=== PATIENT | male | born 1980 | race Caucasian/White ===

== ENCOUNTER 2017-01-18 12:15 | Emergency (ER) | payer SELFPAY ==
[~2017-01-18] VITALS: Ht 167.6 cm; Wt 56.7 kg
[~2017-01-18 12:15] MED LIST: AUGMENTIN875 MG PO; BACTRIM,SEPT1 TABLET PO; CEFDINIR300 MG PO; CLINDAMYCIN HC300 MG PO; EXCEDRIN MIGRA1 EAC3 PO; KEFLEX500 MG PO; LEVAQUIN500 MG PO; METHADONE HCL40 MG PO; METHADONE10 MG PO; METHADOSE5 MG PO; NAPROSYN500 MG PO; NOHOMEMEDS; TORADOL10 MG PO
[2017-01-18 13:15] LABS: HEMATOCRIT 40.7 % (38.0-50.0); MCH 30.1 PG (29.0-34.0); MCHC 34.9 G/DL (30.0-36.0); MCV 86.4 FL (86-99); MEAN PLAT.VOLUME 9.6 uM^3 (9.0-12.4); PLATELET COUNT 232 K/uL (156-360); RBC DIS.WIDTH-CV 12.6 % (11.8-14.6); RED BLOOD COUNT 4.71 M/uL (4.00-5.50)
[2017-01-18 13:28] LABS: CHLORIDE 102 mEq/L (99-109); POTASSIUM 3.7 mEq/L (3.7-5.4); SODIUM 139 mEq/L (136-147)
[2017-01-18 13:29] LABS: GLUCOSE 125 mg/dL (70-99)
[2017-01-18 13:31] LABS: ANION GAP 11 MEQ/L (2-14)
[2017-01-18 13:33] LABS: GFR ESTIMATE (CALCULATED) > 59 mL/min/
[2017-01-18 13:34] LABS: UREA NITROGEN (BUN) 9 mg/dL (9-23)
[2017-01-18 15:13] LABS: EOSINOPHIL (%) 0 % (0-5); IMMATURE GRANULOCYTE (%) 0.2 % (0.0-0.7); IMMATURE GRANULOCYTE COUNT 0.1 K/uL; LYMPHOCYTE COUNT 1.9 K/uL (1.0-2.8); MONOCYTE (%) 5.4 % (3-12); MONOCYTE COUNT 1.2 K/uL (0-0.8); NEUTROPHIL (%) 86.3 % (45-76)
[2017-01-18] MEDS ORDERED: LEVAQUIN500 MG PO (15:58)
[2017-01-18] MEDS ORDERED: TESSALON PERLE100 MG PO (15:58)
[2017-01-18 16:38] VITALS: BP 121/70
== END 2017-01-18 16:48 | disposition home or self-care (01) ==
LOC: EME 12:15
DX: J18.9 Pneumonia, unspecified organism (principal); F17.200 Nicotine dependence, unspecified, uncomplicated; R42 Dizziness and giddiness; Z79.891 Long term (current) use of opiate analgesic
CPT/HCPCS: 71020; 80048; 83605; 85025; 85027; 87040; 99281; 99284

== ENCOUNTER 2017-02-02 14:10 | Emergency (ER) | payer SELFPAY ==
[~2017-02-02] VITALS: Ht 167.6 cm; Wt 55.8 kg
[~2017-02-02 14:10] MED LIST changes: +TESSALON PERLE100 MG PO
[2017-02-02 14:28] LABS: POINT-OF-CARE METER ID UU13113778
[2017-02-02] MEDS ORDERED: METHADONE10 MG PO (14:53)
[2017-02-02 14:59] LABS: HEMATOCRIT 44.1 % (38.0-50.0); MCH 30.1 PG (29.0-34.0); MCHC 33.8 G/DL (30.0-36.0); MCV 89.1 FL (86-99); MEAN PLAT.VOLUME 9.4 uM^3 (9.0-12.4); PLATELET COUNT 288 K/uL (156-360); RBC DIS.WIDTH-CV 12.6 % (11.8-14.6); RBC DIS.WIDTH-SD 40.9 % (39-53); RED BLOOD COUNT 4.95 M/uL (4.00-5.50)
[2017-02-02 15:00] LABS: WHITE BLOOD COUNT 7.2 K/uL (4.1-10.2)
[2017-02-02 15:08] LABS: CHLORIDE 105 mEq/L (99-109); POTASSIUM 3.9 mEq/L (3.7-5.4); SODIUM 142 mEq/L (136-147)
[2017-02-02 15:10] LABS: GLUCOSE 81 mg/dL (70-99)
[2017-02-02 15:11] LABS: ANION GAP 11 MEQ/L (2-14)
[2017-02-02 15:12] LABS: ADD MIUA? YES; BILIRUBIN NEGATIVE; BLOOD NEGATIVE; COLOR YELLOW ((YELLOW)); GLUCOSE (STRIP) NEGATIVE; KETONES NEGATIVE; LEUKOCYTES TRACE; NITRITE NEGATIVE; PROTEIN (STRIP) NEGATIVE; SPECIFIC GRAVITY 1.025 (1.000-1.030)
[2017-02-02 15:12] LABS: TOTAL BILIRUBIN 0.7 mg/dL (0.0-1.0)
[2017-02-02 15:14] LABS: ALKALINE PHOSPHATASE 65 IU/L (3-129); GFR ESTIMATE (CALCULATED) > 59 mL/min/
[2017-02-02 15:15] LABS: UREA NITROGEN (BUN) 10 mg/dL (9-23)
[2017-02-02 15:23] LABS: BACTERIA RARE /HPF; EPITHELIAL CELLS NONE SEEN /HPF; MUCUS TRACE /LPF; UCUL ADDED? NO; WHITE BLOOD CELLS 0-5 /HPF (0-5)
[2017-02-02 17:06] VITALS: BP 115/86
== END 2017-02-02 17:07 | disposition home or self-care (01) ==
LOC: EME 14:10 → RME 14:10
PROVIDERS: Physician Assistant
DX: R20.2 Paresthesia of skin (principal); R53.83 Other fatigue; F17.200 Nicotine dependence, unspecified, uncomplicated
CPT/HCPCS: 80053; 81003; 82607; 82948; 84443; 85027; 99281; 99283

== ENCOUNTER 2017-05-06 20:08 | Emergency (ER) | payer SELFPAY ==
[~2017-05-06] VITALS: Ht 167.6 cm; Wt 57.4 kg
[2017-05-06 21:05] LABS: ADD MIUA? NO; BILIRUBIN NEGATIVE; BLOOD NEGATIVE; COLOR YELLOW ((YELLOW)); GLUCOSE (STRIP) NEGATIVE; KETONES NEGATIVE; LEUKOCYTES NEGATIVE; NITRITE NEGATIVE; PROTEIN (STRIP) NEGATIVE; SPECIFIC GRAVITY 1.028 (1.000-1.030); UROBILINOGEN 0.2 MG/DL (0.2-1.0)
[2017-05-06] MEDS ORDERED: NAPROSYN500 MG PO (21:27)
[2017-05-06 21:40] VITALS: BP 144/73
[2017-05-08 11:56] LABS: CHLAMYDIA TRACHOMATIS NEGATIVE; NEISSERIA GONORRHOEAE NEGATIVE
== END 2017-05-06 21:41 | disposition home or self-care (01) ==
LOC: RME 20:08 → EME 20:08 → RME 21:41
PROVIDERS: Nurse Practitioner Family
DX: R59.0 Localized enlarged lymph nodes (principal); R01.1 Cardiac murmur, unspecified; F17.200 Nicotine dependence, unspecified, uncomplicated
CPT/HCPCS: 81003; 87491; 87591; 99281; 99284

== ENCOUNTER 2017-05-27 18:04 | Emergency (ER) | payer SELFPAY ==
[~2017-05-27] VITALS: Ht 170.2 cm; Wt 56.5 kg
[2017-05-27 19:05] LABS: HEMATOCRIT 42.1 % (38.0-50.0); MCH 30.2 PG (29.0-34.0); MCHC 34.4 G/DL (30.0-36.0); MCV 87.7 FL (86-99); MEAN PLAT.VOLUME 9.2 uM^3 (9.0-12.4); PLATELET COUNT 227 K/uL (156-360); RBC DIS.WIDTH-CV 12.1 % (11.8-14.6); WHITE BLOOD COUNT 7.5 K/uL (4.1-10.2)
[2017-05-27 19:15] LABS: CHLORIDE 105 mEq/L (99-109); POTASSIUM 3.9 mEq/L (3.7-5.4); SODIUM 139 mEq/L (136-147)
[2017-05-27 19:17] LABS: GLUCOSE 96 mg/dL (70-99)
[2017-05-27 19:18] LABS: ANION GAP 8 MEQ/L (2-14)
[2017-05-27 19:21] LABS: GFR ESTIMATE (CALCULATED) > 59 mL/min/
[2017-05-27 19:22] LABS: UREA NITROGEN (BUN) 10 mg/dL (9-23)
[2017-05-27 19:27] LABS: TROP-I INTERPRETATION NEGATIVE; TROPONIN-I < 0.01 ng/mL (0.0-0.30)
[2017-05-27 22:04] LABS: TROP-I INTERPRETATION NEGATIVE; TROPONIN-I < 0.01 ng/mL (0.0-0.30)
[2017-05-27 22:27] VITALS: BP 111/67
== END 2017-05-27 22:28 | disposition home or self-care (01) ==
LOC: EME 18:04
PROVIDERS: Physician Assistant
DX: R07.9 Chest pain, unspecified (principal); F17.210 Nicotine dependence, cigarettes, uncomplicated; F11.99 Opioid use, unspecified with unspecified opioid-induced disorder
CPT/HCPCS: 71020; 80048; 84484; 85027; 93005; 99281; 99284

== ENCOUNTER 2018-07-05 22:53 | Emergency (ER) | payer SELFPAY ==
[~2018-07-05] VITALS: Ht 167.6 cm; Wt 53.0 kg
[2018-07-05 23:22] LABS: HEMATOCRIT 40.1 % (38.0-50.0); HEMOGLOBIN 13.9 G/DL (12.5-16.6); MCH 30.2 PG (29.0-34.0); MCHC 34.7 G/DL (30.0-36.0); MCV 87.2 FL (86-99); PLATELET COUNT 239 K/uL (156-360); RBC DIS.WIDTH-SD 38.6 % (39-53); WHITE BLOOD COUNT 7.1 K/uL (4.1-10.2)
[2018-07-05 23:35] LABS: CHLORIDE 101 mEq/L (99-109); POTASSIUM 3.5 mEq/L (3.7-5.4); SODIUM 137 mEq/L (136-147)
[2018-07-05 23:37] LABS: GLUCOSE 109 mg/dL (70-99)
[2018-07-05 23:41] LABS: CREATININE 0.7 mg/dL (0.6-1.3); GFR ESTIMATE (CALCULATED) > 59 mL/min/ (58.99-99999)
[2018-07-05 23:42] LABS: UREA NITROGEN (BUN) 14 mg/dL (9-23)
[2018-07-05 23:47] LABS: TROP-I INTERPRETATION NEGATIVE; TROPONIN-I < 0.01 ng/mL (0.0-0.30)
[2018-07-06 00:54] LABS: TROP-I INTERPRETATION NEGATIVE; TROPONIN-I < 0.01 ng/mL (0.0-0.30)
[2018-07-06 02:19] VITALS: BP 135/88
== END 2018-07-06 01:57 | disposition home or self-care (01) ==
LOC: EME 22:53
PROVIDERS: Emergency Medicine
DX: R07.9 Chest pain, unspecified (principal); F15.10 Other stimulant abuse, uncomplicated; F11.20 Opioid dependence, uncomplicated; F17.200 Nicotine dependence, unspecified, uncomplicated
CPT/HCPCS: 71046; 80048; 84484; 85027; 93005; 99281; 99285